=== PATIENT | female | born 1965 | race Caucasian/White ===

== ENCOUNTER → 2016-07-04 | Outpatient (CLI) | payer BC ==
--- NOTE | 2016-07-04 15:37 | MAMMOGRAPHY REPORT ---
BILATERAL DIGITAL DIAGNOSTIC MAMMOGRAM TOMOSYNTHESIS WITH CAD AND TARGETED RIGHT ULTRASOUND: 7 CLINICAL HISTORY: 50-year-old woman presents for bilateral screening mammography and also close foll ow-up of 2 small clusters of microcalcifications in the anterior left breast. She has a history of prior benign stereotactic biopsy of microcalcifications in the medial posterior left breast. TECHNIQUE: Bilateral CC and MLO 2-D digital and tomosynthesis images, spot magnification left CC and ML views were obtained. Current study was also evaluated with a Computer Aided Detection (CAD) sys tem. COMPARISON: Comparison is made to exams dated: 12/15/2015 mammogram, 04/08/2015 stereotactic biopsy, mammogram, 03/12/2015 mammogram, 03/10/2014 mammogram, and 01/28/2009 mammogram - [facility]. BREAST COMPOSITION: The tissue of both breasts is heterogeneously dense, which may obscure small ma sses. FINDINGS: There is a stable metallic biopsy marker in the medial, far posterior left breast, at the site of prior benign stereotactic biopsy. The additional spot magnification views of the left breas t demonstrate 2 additional small punctate clusters of microcalcifications in the approximate 3:00 an terior and 12:30 middle one third of the left breast that are both stable comparing to the spot magn ification views obtained 03/20/2015. No other new suspicious calcifications, obvious mass or shaun ectural distortion is seen in the left breast. There is increasing nodularity in the superior, middle to posterior right breast on the tomosynthesi s images, for which additional evaluation with ultrasound was performed in the superior right breast . No focal area of architectural distortion or suspicious microcalcifications are seen in the right breast. Targeted ultrasound was performed in the superior right breast. Numerous anechoic benign simple cys ts are scattered throughout the visualized right breast, with the largest anechoic cysts identified in the 10:00 right breast, 3 cm from the nipple. However, there is an indeterminate isoechoic solid -appearing mass in the 11:00 right breast, 4 cm from the nipple, measuring 3.6 x 2.6 x 3.6 mm. This is indeterminate, warranting further evaluation with tissue sampling. IMPRESSION: ACR BI-RADS CATEGORY 4: SUSPICIOUS, TARGETED ULTRASOUND ACR BI-RADS CATEGORY 4: SUSPICI OUS 1. Ultrasound guided core biopsy is recommended for an indeterminate solid appearing 3.6 mm mass in the 11:00 right breast, seen on ultrasound. 2. Stable small clusters of punctate microcalcifications in the anterior left breast. 3. Pending benign pathology results from the ultrasound-guided core biopsy in the right breast, ty sher recommend bilateral diagnostic mammograms in 12 months including repeat left spot magnification v iews to ensure at least 2 years of stability of the other benign-appearing clusters of microcalcific ations. These results and recommendations were discussed with the patient at the time of the exam. She tent atively scheduled the right breast biopsy and 12 month follow up appointment prior to leaving our de partment. Approximately 10% of breast cancers are not detected with mammography. A negative mammographic repor t should not delay biopsy if a clinically suggestive mass is present. Juanita Alaniz M.D. ay/:07/04/2016 15:23:48 Studio Data Analyst: Elena NEAL(Juan)(Vivienne), [facility] letter sent: Abnormal 4/5 BI-RADS Code: ACR BI-RADS Category 4: Suspicious Ultrasound BI-RADS: ACR BI-RADS Category 4: Suspic ious
== END | disposition home or self-care (01) ==
LOC: C.MAMM 10:32
PROVIDERS: ATTEND Obstetrics & Gynecology
DX: N63 Unspecified lump in breast (principal); R92.0 Mammographic microcalcification found on diagnostic imaging of breast

== ENCOUNTER → 2016-07-14 | Outpatient (CLI) | payer BC ==
--- NOTE | 2016-07-14 11:24 | Discharge Instructions ---
Discharge Instructions Procedure Procedure Date: Jul 14, 2016. Reason for visit: Right Mass. Discharge Discharge Date: Jul 14, 2016. Discharge Diagnosis: status post breast biopsy Instructions Activity Recommendations: Additional Limitations (see below) Return to School/Work: no limitations Recommended Home Diet: No Limitations Provider Instructions: ACTIVITY RECOMMENDATIONS: * No lifting, pushing, pulling or exercising the affected side for three days. RETURN TO SCHOOL/WORK: * You may return to work/school after the procedure, but do not perform any strenuous activities for 24 to 48 hours. MEDICATIONS: * Tylenol (two 325 mg) every four to six hours if needed for mild pain (if not allergic to Tylenol). DIET: * Resume previous diet. SPECIAL CARE INSTRUCTIONS: * Keep biopsy site dry for 24 hours. May shower after 24 hours, but do not soak (bathe) incision. * May remove Tegaderm (plastic patch) tomorrow AFTER showering. * Leave the steri-strips on for one week. Allow the steri-strips to fall off by themselves. If not off after one week, you may remove them. You may place a Bandaid crosswise over the strips, if desired. * Apply ice 10 minutes on and 10 minutes off as needed. * Wear a bra at bedtime to sleep more comfortably for 2-3 days. * Your referring physician should have the results after approximately 5 to 7 business days. * Call for unusual bleeding, fever, drainage, etc or if you have any questions call during normal business hours or after hours call Dr Gillis, [phone]. FOLLOW UP VISIT: Follow-up with Referring Physician as scheduled. Allergies Coded Allergies: No Known Allergies (Verified , 05/16/02) Navid Camara Recommendations: Call your doctor if: * Temperature above 101 degrees * Pain not relieved by pain medicine ordered * There is increased drainage or redness from any incision * You have any unanswered questions or concerns. Your Doctors Instructions noted above were prepared by provider Desi Gillis. Patient Signature Section: Patient Instructions Signature Page Savanna Laird Patient (or Guardian) Signature/Date: I have read and understand the instructions given to me by my caregivers. Caregiver/RN/Doctor Signature/Date: The above-named patient and/or guardian has received patient instructions on this date. + Original Patient Signature Page (only) stays with chart. Please make copy for patient.
--- NOTE | 2016-07-14 15:02 | MAMMOGRAPHY REPORT ---
ULTRASOUND GUIDED BIOPSY RIGHT BREAST: 07/14/2016 CLINICAL HISTORY: Right 12:00 breast mass. PATIENT CONSENT: The procedure, risks and benefits were discussed with the patient and informed writ ten consent was obtained. A timeout was performed immediately prior to the procedure. PROCEDURE DESCRIPTION: With ultrasound guidance, aseptic technique, and lidocaine as the local anest hetic (1% lidocaine to anesthetize the skin and 1% lidocaine with epinephrine to anesthetize the gricel per tissues), the mass of concern in the right 12:00 breast (this was previously labeled as 11:00 on the 07/04/2016 exam) was sampled 5 times with a 14-gauge Achieve biopsy needle. Immediately thereaft er, with ultrasound guidance, aseptic technique, and lidocaine as the local anesthetic, a metallic l ocalizer clip was placed at the biopsy site. Direct pressure was applied to the site immediately po st procedure and hemostasis was achieved. Postprocedure unilateral mammograms were performed to con firm placement of the clip in the expected location of the breast mass. The patient tolerated the procedure without complication. She was given wound care instructions. The specimens were sent to athology for analysis. COMPARISON: Comparison is made to exams dated: 07/04/2016 mammogram, 12/15/2015 mammogram, 04/08/2015 ma mmogram, 03/12/2015 mammogram, and 03/10/2014 mammogram - [facility]. IMPRESSION: ULTRASOUND GUIDED BIOPSY Ultrasound guided core needle biopsy of the right 12:00 breast mass, with clip placement. The patie nt will receive pathology results from her referring provider. Pending benign pathology results, re commend bilateral diagnostic mammograms in 12 months to reevaluate bilateral calcifications, as naun mmended on the prior diagnostic mammogram report. Desi Gillis M.D. /:07/14/2016 11:51:40 Attending Technologist: Xuan NEAL(R)(M), [facility] Magistrate Judge: Desi Gillis MD, [facility]
--- NOTE | 2016-07-14 15:03 | MAMMOGRAPHY REPORT ---
UNILATERAL RIGHT DIGITAL DIAGNOSTIC MAMMOGRAM: 07/14/2016 CLINICAL HISTORY: Status post ultrasound guided biopsy of the right breast. TECHNIQUE: Postprocedural right CC and ML views were obtained. COMPARISON: Comparison is made to exams dated: 07/04/2016 mammogram, 07/04/2016 ultrasound, 12/15/2015 m ammogram, 04/08/2015 stereotactic biopsy, 04/08/2015 mammogram, and 03/20/2015 mammogram - [facility]. BREAST COMPOSITION: The tissue of the right breast is heterogeneously dense, which may obscure smal l masses. FINDINGS: A new biopsy marker clip is seen in the expected location of the biopsied mass in the rig ht 12:00 breast. No significant postbiopsy hematoma is seen. IMPRESSION: POST PROCEDURE IMAGING FOR MARKER PLACEMENT New biopsy marker clip status post ultrasound guided biopsy of the right 12:00 breast mass. Patholo gy results are pending. Approximately 10% of breast cancers are not detected with mammography. A negative mammographic repor t should not delay biopsy if a clinically suggestive mass is present. Desi Gillis M.D. ah/:07/14/2016 11:53:03 Take Off Worker: Xuan NEAL(R)(M), [facility] BI-RADS Code: Post Procedure Imaging For Marker Placement
== END | disposition home or self-care (01) ==
LOC: C.MAMM 10:55
PROVIDERS: ATTEND Obstetrics & Gynecology
DX: N63 Unspecified lump in breast (principal); N60.21 Fibroadenosis of right breast

== ENCOUNTER → 2017-01-19 | Outpatient (CLI) | payer BC ==
[2017-01-19 09:35] LABS: HEMATOCRIT 41.7 % (37-47); MEAN CELL VOLUME 96.3 fL (80-100); MEAN CORPUSCULAR HEMOGLOBIN 32.6 pg (25-34); MEAN CORPUSCULAR HGB CONC 33.8 g/dl (32-36); MEAN PLATELET VOLUME 9.7 fL (7.4-10.4); PLATELET COUNT 265 K/uL (130-400); RED BLOOD COUNT 4.33 M/uL (4.2-5.4); WHITE BLOOD COUNT 6.68 K/uL (4.8-10.8)
[2017-01-19 10:07] LABS: ALT/SGPT 27 U/L (12-78); AST/SGOT 18 U/L (15-37); BLOOD UREA NITROGEN 11 mg/dl (7-18); BUN/CREATININE RATIO 13.2 (10-20); CALCIUM 8.5 mg/dl (8.5-10.1); CARBON DIOXIDE 25 mmol/L (21-32); CHLORIDE 107 mmol/L (98-107); GLUCOSE 90 mg/dl (70-99); POTASSIUM 4.1 mmol/L (3.5-5.1); SODIUM 141 mmol/L (136-145); TRIGLYCERIDES 59 mg/dl (0-150); VERY LOW DENSITY LIPOPROT CALC 12 mg/dl
[2017-01-19 10:20] LABS: ALB/GLOB RATIO 1.1 (0.9-2); ALKALINE PHOSPHATASE 67 U/L (45-117); CHOLESTEROL 184 mg/dl (0-200); CHOLESTEROL/HDL RATIO 2.7; HDL CHOLESTEROL 68 mg/dl; LDL CHOLESTEROL CALCULATED 104 mg/dl; THYROID STIMULATING HORMONE 0.845 uIu/ml (0.300-4.500)
== END | disposition home or self-care (01) ==
LOC: C.LAB1850 07:54
PROVIDERS: ATTEND Family Medicine
DX: Z00.00 Encounter for general adult medical examination without abnormal findings (principal); R53.83 Other fatigue; E55.9 Vitamin D deficiency, unspecified; R79.89 Other specified abnormal findings of blood chemistry; L40.0 Psoriasis vulgaris

== ENCOUNTER → 2017-07-05 | Outpatient (CLI) | payer BC ==
--- NOTE | 2017-07-05 15:22 | MAMMOGRAPHY REPORT ---
BILATERAL DIGITAL DIAGNOSTIC MAMMOGRAM TOMOSYNTHESIS WITH CAD: 07/05/2017 CLINICAL HISTORY: 12 month follow-up of left breast calcifications. Due for routine mammography of t he right breast. The patient is status post ultrasound-guided core needle biopsy of a right 12:00 br east mass which yielded benign pathology. TECHNIQUE: Breast tomosynthesis in addition to standard 2D mammography was performed. Current study was also evaluated with a Computer Aided Detection (CAD) system. Bilateral CC and MLO 2D and tomosyn thesis images and spot magnification left CC and ML views were obtained. COMPARISON: Comparison is made to exams dated: 07/14/2016 ultrasound biopsy, 07/14/2016 mammogram, 07/04 ultrasound, 07/04/2016 mammogram, 12/15/2015 mammogram, and 04/08/2015 stereotactic biopsy - [facility]. BREAST COMPOSITION: The tissue of both breasts is heterogeneously dense, which may obscure small mas ses. FINDINGS: Spot magnification views of the left breast again demonstrate two small clusters of punctat e benign-appearing calcifications in the left anterior breast at approximately 12:30 and 3:00. The c alcifications are stable on spot magnification views dating back to at least the March 2015 exam. Given the morphology and long-term stability, the calcifications are considered benign. The remainder of both breasts are stable compared to prior exams, without suspicious masses, calcific ations, or areas of architectural distortion noted. Biopsy marker clips are again noted within the l eft medial posterior breast and right breast at approximately 12:00 from prior benign biopsies. IMPRESSION: ACR BI-RADS CATEGORY 2: BENIGN There is no mammographic evidence of malignancy in either breast. A 1 year screening mammogram is rec ommended. The patient has been verbally notified of the results. Approximately 10% of breast cancers are not detected with mammography. A negative mammographic report should not delay biopsy if a clinically suggestive mass is present. Desi Gillis M.D. ah/:07/05/2017 10:55:22 Boat Repairer: Kelsey KEMP)(Vivienne), [facility] letter sent: Normal 1/2 BI-RADS Code: ACR BI-RADS Category 2: Benign
== END | disposition home or self-care (01) ==
LOC: C.MAMM 10:30
PROVIDERS: ATTEND Obstetrics & Gynecology
DX: R92.1 Mammographic calcification found on diagnostic imaging of breast (principal)